=== PATIENT | female | born 1940 | race Caucasian/White ===

== ENCOUNTER 2025-04-10 11:13 | Emergency (ER) | payer MEDICARE, BC ==
[~2025-04-10] VITALS: Ht 157.5 cm; Wt 50.0 kg
[2025-04-10 11:15] VITALS: O2SAT 98
[2025-04-10] MEDS ORDERED: MORPHINE SULFATE 2 MG/ML INJ (NOT FOR IM USE) IV ONE (11:45)
[2025-04-10] MEDS: MORPHINE SULFATE 4 MG/ML INJ (FOR IV/IM USE) IV NR (12:01)
[2025-04-10] MEDS: ONDANSETRON HCL 4MG/2ML INJ IV ONE (12:01)
[2025-04-10] MEDS: SODIUM CHLORIDE 0.9% 1,000 ML IV ONE (12:35)
[2025-04-10] MEDS ORDERED: HYDR-4001 MT (14:17)
[2025-04-10] MEDS ORDERED: IBUP-1455 MT (14:17)
[2025-04-10] MEDS: KETOROLAC 30MG/ML VIAL IV ONE (15:21)
[2025-04-10 15:33] VITALS: BP 115/51; PULSE 60; RESP 15; TEMP 36.6; O2SAT 95
== END 2025-04-10 15:51 | disposition home or self-care (01) ==
LOC: ER 11:51
DX: S42.211A Unspecified displaced fracture of surgical neck of right humerus, initial encounter for closed fracture (principal); W01.0XXA Fall on same level from slipping, tripping and stumbling without subsequent striking against object, initial encounter; Y93.89 Activity, other specified; Y92.89 Other specified places as the place of occurrence of the external cause; Y99.8 Other external cause status
CPT/HCPCS: 99285; 96374; 29105; 96375; 96361; 73030; J1885; J2405; J2270; J7030; 29505; A4565